=== PATIENT | male | born 1950 | race Caucasian/White ===

== ENCOUNTER 2017-12-19 16:46 | Emergency (ER) | payer OTHER, BC ==
[~2017-12-19] VITALS: Ht 172.7 cm; Wt 86.2 kg
[2017-12-19 16:46] VITALS: BP_SYST 145
[2017-12-19] MEDS ORDERED: BACITRACIN 1 GM OINT TP ONE ×2 (17:19→17:30)
[2017-12-19] MEDS ORDERED: IBUPROFEN 600 MG TABLET PO ONE (17:30)
[2017-12-19] MEDS ORDERED: DIPH-TET-PERTUS Vaccine 0.5 ML VIAL (ADACEL) I.M. ONE (17:45)
[2017-12-19 20:41] VITALS: BP_SYST 137
== END 2017-12-19 20:38 | disposition home or self-care (01) ==
LOC: SED 16:46
DX: S61.451A Open bite of right hand, initial encounter (principal); R03.0 Elevated blood-pressure reading, without diagnosis of hypertension; Z88.0 Allergy status to penicillin; W54.0XXA Bitten by dog, initial encounter; Y93.89 Activity, other specified; Y92.89 Other specified places as the place of occurrence of the external cause; Y99.8 Other external cause status
CPT/HCPCS: 90715; 99283